=== PATIENT | female | born 1975 | race African-American/Black ===

== ENCOUNTER 2022-12-19 10:53 | Emergency (ER) | payer OTHER ==
[2022-12-19 11:11] VITALS: RESP 18; TEMP 98.2; BMI 25.8
[2022-12-19 11:48] VITALS: BP 165/90; PULSE 85
[2022-12-19] MEDS ORDERED: ALBUTEROL SO4 2.5/IPRATROPIUM 0.5 INH SOL 3 ML VIAL.NEB. NEB ONE ×3 (11:52→12:56)
[2022-12-19] MEDS ORDERED: ACETAMINOPHEN 1000 MG/100 ML BAG IVPB ONE (11:53)
[2022-12-19] MEDS ORDERED: SODIUM CHLORIDE 1,000 ML IV STA (11:53)
[2022-12-19] MEDS ORDERED: ACETAMINOPHEN INJECTION 100 ML IVPB ONE (12:15)
[2022-12-19] MEDS ORDERED: predniSONE 20 MG TABLET (UD) PO STA (12:26)
[2022-12-19] MEDS ORDERED: predniSONE 20 MG TABLET (UD) ONE (12:33)
[2022-12-19 12:38] LABS: BASO % 0.7 % (0-2.0); EOS % 0.1 % (0-4.5); HEMATOCRIT 34.5 % (32.4-45.2); HEMOGLOBIN 11.2 GM/dL (10.7-15.3); LYMPH % 8.6 % (8-40); MCH 28.5 pg (25.7-33.7); MCHC 32.6 g/dl (32.0-36.0); MEAN CELL VOLUME 87.3 fl (80-96); MEAN PLT VOLUME 9.2 fl (7.5-11.1); MONO % 5.4 % (3.8-10.2); NEUT % 85.2 % (42.8-82.8); PLATELET COUNT 172 10^3/uL (134-434); RBC 3.95 M/mm3 (3.60-5.2); RDW 16.4 % (11.6-15.6); WHITE BLOOD COUNT 12.4 K/mm3 (4.0-10.0)
[2022-12-19 12:54] LABS: POTASSIUM 4.4 mmol/L (3.5-5.1)
[2022-12-19 12:55] LABS: CALCIUM 8.7 mg/dL (8.5-10.1)
[2022-12-19 12:56] LABS: ALBUMIN 2.8 g/dl (3.4-5.0); BLOOD UREA NITROGEN 7.5 mg/dL (7-18); MAGNESIUM 1.3 mg/dL (1.8-2.4)
[2022-12-19 12:59] LABS: CREATININE 0.5 mg/dL (0.55-1.3)
[2022-12-19 13:01] LABS: BILIRUBIN,TOTAL 1.3 mg/dL (0.2-1); TOT PROT 8.3 g/dl (6.4-8.2)
[2022-12-19] MEDS ORDERED: MAGNESIUM SULFATE IN WATER 2 GM/50 ML IVPB IVPB ONE ×2 (13:26→13:40)
[2022-12-19 13:32] LABS: EPI CELLS 12 /uL (0-25.1); HCG,QUALITATIVE URINE Negative; HYALINE CASTS 0 /uL (0-3.1); PH,URINE 5.5 (5.0-8.0); URINE APPEARANCE CLEAR; URINE BACTERIA 67 /uL (0-1359); URINE BILIRUBIN NEGATIVE (NEGATIVE); URINE COLOR YELLOW; URINE GLUCOSE (UA) NEGATIVE (NEGATIVE); URINE KETONE NEGATIVE (NEGATIVE); URINE LEUK ESTERASE NEGATIVE (NEGATIVE); URINE NITRITE NEGATIVE (NEGATIVE); URINE PROTEIN 1+ (NEGATIVE); URINE RBC 13 /uL (0-23.9); URINE UROBILINOGEN 0.2 mg/dL (0.2-1.0); URINE WBC 10 /uL (0-25.8)
== END 2022-12-19 13:55 | disposition left against medical advice (07) ==
LOC: JER 10:53
PROC: 3E0F7GC Introduction of Other Therapeutic Substance into Respiratory Tract, Via Natural or Artificial Opening (ICD-10-PCS; principal; 2022-12-19)
DX: R07.9 Chest pain, unspecified (principal); R05.9 Cough, unspecified; R06.2 Wheezing; R09.89 Other specified symptoms and signs involving the circulatory and respiratory systems
CPT/HCPCS: 36415; 71046-TC-FY; 80053; 80307; 81003; 83735; 84484; 84703; 85025; 87086; 93005; 93010; 99285-25